=== PATIENT | male | born 1985 | race American Indian/Alaskan Native ===

== ENCOUNTER 2022-03-29 15:24 | Emergency (ER) | payer SELFPAY ==
[2022-03-29 17:28] VITALS: BP 122/85
== END 2022-03-29 19:30 | disposition left against medical advice (07) ==
LOC: ED 15:24
DX: H57.10 Ocular pain, unspecified eye (principal); Z53.21 Procedure and treatment not carried out due to patient leaving prior to being seen by health care provider

== ENCOUNTER 2022-03-29 23:21 | Emergency (ER) | payer SELFPAY | END 2022-03-30 07:00 | disposition left against medical advice (07) | LOC: ED 23:21 | DX: H57.10 Ocular pain, unspecified eye (principal); Z53.21 Procedure and treatment not carried out due to patient leaving prior to being seen by health care provider ==